=== PATIENT | male | born 1975 | race Asian ===

== ENCOUNTER 2024-06-21 03:33 | Inpatient (IN) | payer OTHER ==
[~2024-06-21] VITALS: Ht 172.7 cm; Wt 100.2 kg
[2024-06-21] MEDS: MORPHINE SULFATE 4 MG/ML INJ (FOR IV/IM USE) IV STA (03:53)
[2024-06-21] MEDS: ONDANSETRON HCL 4MG/2ML INJ IV STA (03:53)
[2024-06-21] MEDS: ASPIRIN 81MG TABLET PO ONE (04:00)
[2024-06-21] MEDS: SODIUM CHLORIDE 0.9% 1,000 ML IV ONE ×2 (04:12→08:23)
[2024-06-21 04:30] LABS: CARBON DIOXIDE 29 mEq/L (21-32); CHLORIDE 104 mEq/L (98-107); POTASSIUM 4.5 mEq/L (3.5-5.1); SODIUM 141 mEq/L (136-145)
[2024-06-21 04:31] LABS: CALCIUM 9.4 mg/dL (8.7-10.4)
[2024-06-21 04:36] LABS: CREATININE 1.5 mg/dL (0.6-1.3); GLUCOSE 172 mg/dL (70-105); UREA NITROGEN BLOOD 14 mg/dL (9-23)
[2024-06-21 04:37] LABS: ALANINE AMINOTRANSFERASE 26 IU/L (10-49)
[2024-06-21 04:38] LABS: ALBUMIN 4.5 g/dL (3.2-4.8); ASPARTATE AMINOTRANSFERASE 18 IU/L (<34); BILIRUBIN DIRECT 0.2 mg/dL (<=3.0); BILIRUBIN TOTAL 0.8 mg/dL (0.1-1.0); PARTIAL THROMBOPLASTIN TIME 25.4 sec (23.4-31.0); PROTEIN TOTAL 7.6 g/dL (6.0-8.3); PROTHROMBIN TIME 10.3 sec (9.6-11.0)
[2024-06-21 04:39] LABS: TROPONIN I HIGH SENSITIVITY < 4 ng/L (3.0-53)
[2024-06-21 04:46] LABS: HEMATOCRIT. 48.5 % (42.0-52.0); HEMOGLOBIN. 16.6 g/dL (14.0-18.0); MEAN CORPUSCULAR HEMOGLOBIN 30.6 pg (28.0-32.0); MEAN CORPUSCULAR HGB CONC 34.2 g/dL (31.0-37.0); MEAN CORPUSCULAR VOLUME 89.6 fL (80.0-94.0); MEAN PLATELET VOLUME 9.9 fl (7.4-10.4); PLATELET 192 x1000/uL (130-400); RED BLOOD CELL COUNT 5.42 mill/uL (4.7-6.1); RED CELL DISTRIBUTION WIDTH 13.2 % (11.6-14.6); WHITE BLOOD COUNT 16.8 x1000/uL (4.5-11.0)
[2024-06-21 05:04] LABS: DIFFERENTIAL COMMENT 1
[2024-06-21 06:16] LABS: PLATELET ESTIMATE NORMAL
[2024-06-21 06:37] LABS: TROPONIN I HIGH SENSITIVITY < 4 ng/L (3.0-53)
[2024-06-21] MEDS ORDERED: ACETAMINOPHEN 325MG TABLET PO PRN (07:45)
[2024-06-21] MEDS ORDERED: DOCUSATE SODIUM 100MG CAPSULE PO PRN (07:45)
[2024-06-21] MEDS ORDERED: ONDANSETRON HCL 4MG/2ML INJ IV PRN (07:45)
[2024-06-21] MEDS ORDERED: MAGNESIUM/ALUMINUM HYDROXIDE/SIMETHICONE 30ML UDC PO PRN (07:45)
[2024-06-21] MEDS ORDERED: CLONIDINE 0.1MG TABLET PO PRN (07:45)
[2024-06-21] MEDS ORDERED: GUAIFENESIN 200MG/10ML SUGAR FREE UDC PO PRN (07:45)
[2024-06-21] MEDS ORDERED: IPRATROPIUM/ALBUTEROL 0.5-3(2.5)MG/3ML NEB HHN PRN (07:45)
[2024-06-21] MEDS ORDERED: MORPHINE SULFATE 2 MG/ML INJ (NOT FOR IM USE) IV PRN (08:00)
[2024-06-21] MEDS ORDERED: DEXTROSE 50% WATER 50ML SYRINGE IV PRN (08:00)
[2024-06-21] MEDS: INSULIN LISPRO 100 UNITS/ML SUBCUT SCH (08:20)
[2024-06-21] MEDS: MORPHINE SULFATE 4 MG/ML INJ (FOR IV/IM USE) IV ONE (08:23)
[2024-06-21] MEDS: CEFTRIAXONE 1GM/50ML 50 ML IV ONE (08:23)
[2024-06-21 08:34] VITALS: BP 120/79; PULSE 98; RESP 18; TEMP 36.5
[2024-06-21] MEDS ORDERED: NALOXONE HCL 0.4MG/ML VIAL IV PRN (09:15)
[2024-06-21] MEDS: BLOOD SUGAR DIAGNOSTIC STRIP TEST SCH (09:16)
[2024-06-21] MEDS: PANTOPRAZOLE SODIUM 40 MG/VIAL IV SCH (11:02)
[2024-06-21] MEDS: METRONIDAZOLE 500 MG PREMIX 100 ML IV ONE (11:02)
[2024-06-21] MEDS: LACTATED RINGERS 1,000 ML IV SCH (11:05)
[2024-06-21 12:00] VITALS: BP 129/87; PULSE 100; RESP 17; TEMP 36.3; O2SAT 95
[2024-06-21 13:01] LABS: LACTIC ACID 2.3 mmol/L (0.4-2.0)
[2024-06-21 13:06] LABS: TROPONIN I HIGH SENSITIVITY < 4 ng/L (3.0-53)
[2024-06-21] MEDS: PIPERACILLIN/TAZO 3.375G/50ML 50 ML IV NR (13:31)
[2024-06-21] MEDS: ACETAMINOPHEN 325MG TABLET PO PRN (13:31)
[2024-06-21 16:00] VITALS: PULSE 98; RESP 18; TEMP 35.6; O2SAT 95
[2024-06-21] MEDS: PIPERACILLIN/TAZO 3.375G/50ML 50 ML IV SCH (18:16)
[2024-06-21 18:35] LABS: CREATINE KINASE 72 IU/L (46-171)
[2024-06-21 18:38] LABS: TROPONIN I HIGH SENSITIVITY < 4 ng/L (3.0-53)
[2024-06-21] MEDS ORDERED: LOSA100T33 PO (18:51)
[2024-06-21] MEDS ORDERED: METF-907 MT (18:51)
[2024-06-21] MEDS ORDERED: AMLO5TAB88 PO (18:51)
[2024-06-21 20:00] VITALS: BP 119/81; PULSE 98; RESP 20; TEMP 37.2; O2SAT 95
[2024-06-22] VITALS: BP 136/75; PULSE 100; RESP 20; TEMP 37.5; O2SAT 96
[2024-06-22 04:00] VITALS: BP 124/70; PULSE 85; RESP 20; TEMP 37.1; O2SAT 97
[2024-06-22 08:00] VITALS: BP 128/76; PULSE 90; RESP 19; TEMP 36.4; O2SAT 97
[2024-06-22] MEDS ORDERED: KETOROLAC 15MG/ML VIAL IV PRN (08:00)
[2024-06-22 11:25] LABS: BASOPHILS % 0.3 % (0.0-2.0); EOSINOPHILS % 0.7 % (0.0-5.0); HEMATOCRIT. 44.4 % (42.0-52.0); HEMOGLOBIN. 14.5 g/dL (14.0-18.0); LYMPHOCYTES % 10.9 % (20.0-50.0); MEAN CORPUSCULAR HEMOGLOBIN 30.2 pg (28.0-32.0); MEAN CORPUSCULAR HGB CONC 32.7 g/dL (31.0-37.0); MEAN CORPUSCULAR VOLUME 92.4 fL (80.0-94.0); MEAN PLATELET VOLUME 9.8 fl (7.4-10.4); MONOCYTES % 10.1 % (2.0-8.0); PLATELET 127 x1000/uL (130-400); RED CELL DISTRIBUTION WIDTH 13.6 % (11.6-14.6)
[2024-06-22 11:43] LABS: CHLORIDE 107 mEq/L (98-107); POTASSIUM 4.1 mEq/L (3.5-5.1); SODIUM 141 mEq/L (136-145)
[2024-06-22 11:44] LABS: CALCIUM 8.3 mg/dL (8.7-10.4); CARBON DIOXIDE 23 mEq/L (21-32)
[2024-06-22 11:49] LABS: CREATININE 1.4 mg/dL (0.6-1.3); GLUCOSE 97 mg/dL (70-105); TRIGLYCERIDE 99 mg/dL (0-150); UREA NITROGEN BLOOD 14 mg/dL (9-23)
[2024-06-22 11:50] LABS: LDL CHOLESTEROL 47 mg/dL (5-100)
[2024-06-22 11:51] LABS: ALANINE AMINOTRANSFERASE 20 IU/L (10-49); ALBUMIN 3.6 g/dL (3.2-4.8); ASPARTATE AMINOTRANSFERASE 17 IU/L (<34); BILIRUBIN TOTAL 1.3 mg/dL (0.1-1.0); CHOLESTEROL 94 mg/dL (<200); CREATINE KINASE 63 IU/L (46-171); HDL CHOLESTEROL 26 mg/dL (>55); PHOSPHORUS 2.5 mg/dL (2.5-4.9); PROTEIN TOTAL 6.1 g/dL (6.0-8.3)
[2024-06-22 11:53] LABS: THYROID STIMULATING HORMONE 0.96 uIU/mL (0.55-4.78)
[2024-06-22 11:56] LABS: TROPONIN I HIGH SENSITIVITY < 4 ng/L (3.0-53)
[2024-06-22 12:00] VITALS: BP 141/81; PULSE 68; RESP 19; TEMP 37.4; O2SAT 98
[2024-06-22 16:00] VITALS: BP 122/79; PULSE 91; RESP 20; TEMP 36.4; O2SAT 95
[2024-06-22 20:00] VITALS: BP 130/89; PULSE 85; RESP 20; TEMP 36.3; O2SAT 96
[2024-06-23 08:00] VITALS: BP 133/97; PULSE 73; RESP 17; TEMP 36.8; O2SAT 98
[2024-06-23] MEDS: FAMOTIDINE 20MG/2ML VIAL IV SCH (09:15)
[2024-06-23 12:00] VITALS: BP 143/99; PULSE 71; RESP 16; TEMP 36.7; O2SAT 96
[2024-06-23 16:00] VITALS: BP 123/78; PULSE 78; RESP 18; TEMP 36.6; O2SAT 96
[2024-06-23] MEDS ORDERED: PANT40TA51 PO (17:10)
[2024-06-23] MEDS ORDERED: ONDA4TAB50 PO (17:10)
[2024-06-23 18:00] VITALS: BP 132/79; PULSE 120; TEMP 97; O2SAT 97
== END 2024-06-23 18:41 | disposition home or self-care (01) | DRG 872 ==
LOC: ER 03:33 → 6EST 06:46
PROVIDERS: ADMIT Internal Medicine; ATTEND Internal Medicine
DX: A41.9 Sepsis, unspecified organism (principal); N17.9 Acute kidney failure, unspecified; D64.9 Anemia, unspecified; E66.9 Obesity, unspecified; I10 Essential (primary) hypertension; K21.9 Gastro-esophageal reflux disease without esophagitis; K91.5 Postcholecystectomy syndrome; E78.00 Pure hypercholesterolemia, unspecified; R07.89 Other chest pain; K76.0 Fatty (change of) liver, not elsewhere classified; Z79.4 Long term (current) use of insulin; Z79.84 Long term (current) use of oral hypoglycemic drugs; Z79.899 Other long term (current) drug therapy; Z87.891 Personal history of nicotine dependence; Z90.49 Acquired absence of other specified parts of digestive tract; Z68.33 Body mass index [BMI] 33.0-33.9, adult
CPT/HCPCS: 36415; 71045; 74176; 74181; 76705; 80048; 80053; 80061; 80076; 82550; 82962; 83036; 83605; 83735; 83880; 84100; 84145; 84439; 84443; 84484; 85025; 93005; 93970; 99285; C1893; J0696; J2270; J2405; J2470; J2543; J3490; J7030